=== PATIENT | female | born 1970 | race Caucasian/White ===

== ENCOUNTER 2020-10-27 12:33 | Outpatient (REF) | payer OTHER, SELFPAY ==
[2020-11-01 13:31] LABS: HPV mRNA E6/E7 rflx Not Detected (Not Detected)
== END 2020-10-27 12:34 | disposition home or self-care (01) ==
LOC: HO.LAB 12:33
PROVIDERS: Visit Provider Advanced Practice Midwife
DX: Z01.411 Encounter for gynecological examination (general) (routine) with abnormal findings (principal); Z11.51 Encounter for screening for human papillomavirus (HPV); N90.89 Other specified noninflammatory disorders of vulva and perineum
CPT/HCPCS: 36415; 87624; 88142

== ENCOUNTER → 2020-10-31 09:47 | Outpatient (BNVA) | payer OTHER, SELFPAY | PROVIDERS: Visit Provider Obstetrics & Gynecology ==

== ENCOUNTER 2020-11-02 08:16 | Outpatient (REF) | payer OTHER, SELFPAY | END 2020-11-02 08:17 | disposition home or self-care (01) | LOC: HO.LAB 08:16 | PROVIDERS: Visit Provider Obstetrics & Gynecology | DX: N90.89 Other specified noninflammatory disorders of vulva and perineum (principal); G89.29 Other chronic pain; M54.9 Dorsalgia, unspecified; K58.1 Irritable bowel syndrome with constipation; E78.00 Pure hypercholesterolemia, unspecified; E66.9 Obesity, unspecified; J30.2 Other seasonal allergic rhinitis; Z88.7 Allergy status to serum and vaccine; Z91.040 Latex allergy status; Z78.0 Asymptomatic menopausal state | CPT/HCPCS: 56605; 56606; 88305; 88312; 99212 ==

== ENCOUNTER → 2020-11-16 10:22 | Outpatient (BNVA) | payer OTHER, SELFPAY | PROVIDERS: Visit Provider Obstetrics & Gynecology ==

== ENCOUNTER → 2020-11-28 12:38 | Outpatient (BNVA) | payer OTHER, SELFPAY | PROVIDERS: Visit Provider Surgery | DX: Z01.818 Encounter for other preprocedural examination (principal); E66.01 Morbid (severe) obesity due to excess calories; Z68.42 Body mass index [BMI] 45.0-49.9, adult; R06.02 Shortness of breath | CPT/HCPCS: 99202 ==

== ENCOUNTER 2020-12-08 06:36 | Outpatient (REF) | payer OTHER, SELFPAY ==
--- NOTE | ~2020-12-08 | XR_ITS ---
EXAMINATION: XR CHEST CLINICAL INFORMATION: Shortness of breath COMPARISON: None TECHNIQUE: 2 views of the chest were obtained. FINDINGS: No significant abnormality is noted involving the heart, lungs, mediastinum, bony thorax or soft tissues. There is moderate spondylosis dorsal spine. XR/XR chest 2V IMPRESSION: Unremarkable chest examination.
--- NOTE | 2020-12-08 07:04 | ECG_ITS ---
Test Reason : SOB Blood Pressure : / mmHG Vent. Rate : 085 BPM Atrial Rate : 085 BPM P-R Int : 138 ms QRS Dur : 078 ms QT Int : 372 ms P-R-T Axes : 014 009 006 degrees QTc Int : 442 ms Normal sinus rhythm Normal ECG No previous ECGs available Referred By: Letitia Deleon Electronically Signed By:River Ngo
[2020-12-08 08:17] LABS: MANUAL DIFF FLAG NO
[2020-12-08 08:35] LABS: Basophils Absolute Auto 0.1 X10*3/uL (0.0-0.2); Basophils Percent Auto 1.2 % (0-2); Eosinophils Absolute Auto 0.3 X10*3/uL (0.0-0.4); Hematocrit 40.3 % (37-47); Hemoglobin 13.2 g/dl (12.0-16.0); Imm Gran Abs Auto 0.01 X10*3/uL (0.00-0.03); Imm Gran Pct Auto 0.1 % (0.0-0.4); Lymphocytes Absolute Auto 3.3 X10*3/uL (1.2-4.9); Lymphocytes Percent Auto 43.6 % (20-40); Mean Corpuscular HGB Conc 32.8 g/dl (31.0-35.0); Mean Corpuscular Hemoglobin 30.4 pg (27.0-33.0); Mean Corpuscular Volume 92.9 fL (80-98); Mean Platelet Volume 10.4 fL (9.4-12.3); Monocytes Absolute Auto 0.6 X10*3/uL (0.1-1.2); Monocytes Percent Auto 8.6 % (2-11); Neutrophils Absolute Auto 3.2 X10*3/uL (2.0-8.3); Neutrophils Percent Auto 42.5 % (45-73); Platelet Count 248 X10*3/uL (160-400); Red Blood Count 4.34 X10*6/uL (4.20-5.50); Red Cell Distribution Width 13.1 % (11.0-16.0); White Blood Count 7.5 X10*3/uL (4.8-10.8)
[2020-12-08 08:51] LABS: Alanine Aminotransferase 27 U/L (0-31); Albumin Level 4.1 g/dL (3.5-5.0); Alkaline Phosphatase 71 U/L (39-117); Anion Gap 14 (12-20); Aspartate Amino Transferase 24 U/L (5-31); Bilirubin Total 1.2 mg/dL (0.0-1.0); Blood Urea Nitrogen 14 mg/dL (9-16); Calcium 8.8 mg/dL (8.4-10.2); Carbon Dioxide 29 mmol/L (22-29); Chloride 102 mmol/L (96-108); Cholesterol 259 mg/dL; Estimated Glomerular Filt Rate > 60; Glucose Fasting 110 mg/dL (60-99); HDL Cholesterol 80 mg/dL; Iron 118 mcg/dL (30-160); LDL Cholesterol Calculated 153 mg/dl; Percent Iron Saturation 32 % (15-50); Potassium 4.2 mmol/L (3.3-5.1); Sodium 141 mmol/L (135-145); Total Iron Binding Capacity 370 mcg/dL (228-428); Total Protein 6.8 g/dL (6.5-8.0); Triglycerides 132 mg/dL; Unsaturated Iron Binding 252 ug/dL
[2020-12-08 10:01] LABS: Estimated Average Glucose 111 mg/dL; Hemoglobin A1c % 5.5 %; Thyroid Stimulating Hormone 3.37 uIU/mL (0.32-4.0); Vitamin B12 242 pg/mL (200-900); Vitamin D 25-OH Total 6.6 ng/mL (>30)
[2020-12-09 13:51] LABS: H Pylori Breath Test NOT DETECTED (NOT DETECTED)
[2020-12-09 18:21] LABS: Calcium (PTHI) 8.9 mg/dL (8.6-10.4); PTHI 163 pg/mL (14-64)
[2020-12-12 00:57] LABS: Zinc 78 mcg/dL (60-130)
[2020-12-12 06:51] LABS: Vitamin B1 9 nmol/L (8-30)
[2020-12-14 11:47] LABS: Vitamin A 63 mcg/dL (38-98)
== END 2020-12-08 06:37 | disposition home or self-care (01) ==
LOC: HO.LAB 06:36
PROVIDERS: Visit Provider Surgery
DX: Z01.818 Encounter for other preprocedural examination (principal); R06.02 Shortness of breath; K91.2 Postsurgical malabsorption, not elsewhere classified; Z90.3 Acquired absence of stomach [part of]
CPT/HCPCS: 36415; 71046; 80053; 80061; 82306; 82607; 83013; 83036; 83540; 83970; 84425; 84443; 84590; 84630; 85025; 86140; 93005; 99211

== ENCOUNTER → 2020-12-27 08:08 | Outpatient (BNVA) | payer OTHER, SELFPAY | PROVIDERS: Visit Provider Obstetrics & Gynecology | DX: N90.89 Other specified noninflammatory disorders of vulva and perineum (principal) | CPT/HCPCS: 99212 ==

== ENCOUNTER → 2020-12-29 13:14 | Outpatient (BNVA) | payer OTHER, SELFPAY | PROVIDERS: PCP Internal Medicine; Visit Provider Dietitian, Registered | DX: E66.01 Morbid (severe) obesity due to excess calories (principal); Z68.42 Body mass index [BMI] 45.0-49.9, adult | CPT/HCPCS: 97802 ==

== ENCOUNTER 2020-12-30 06:36 | Day surgery (SDC) | payer OTHER, SELFPAY ==
[2020-12-23 12:56] VITALS: BMI 49.2
[2020-12-30 06:53] VITALS: BP 111/69; PULSE 87; RESP 20; TEMP 36.2; O2SAT 97
--- NOTE | 2020-12-30 07:24 | P.CONAN_ITS ---
[facility] Active Problems Active Problems: All Active Problems (Updated 12/27/20 @ 08:57 by Filemon Huizar MD) Well woman exam with routine gynecological exam (Acute) Vulvar lesion (Acute) Preoperative examination (Acute) Shortness of breath (Acute) Morbid obesity due to excess calories (Acute) BMI 45.0-49.9, adult (Acute) Vitamin D deficiency (Acute) Bipolar 1 disorder, depressed, severe (Acute) Hyperparathyroidism (Acute) B12 deficiency (Acute) Dyslipidemia (Acute) Impaired glucose tolerance (Acute) Past Medical History Medical History (Updated 12/30/20 @ 07:26 by Leona Palm) Allergic rhinitis Arthritis B12 deficiency Chronic back pain Constipation Dyslipidemia History of Guillain-[place] syndrome Hyperparathyroidism Impaired glucose tolerance Manic depression Obesity Serum cholesterol elevated Unsteady gait when walking Family History Family History Father Hyperlipidemia Diabetes CVD (cardiovascular disease) Mother Diabetes Bipolar 1 disorder Depression Sister In good health Surgical History Surgical History History of appendectomy History of carpal tunnel release Hx of colonoscopy Social History Social History Are you a primary memory care director to a significant other at home: No Do you presently have visiting nurse or other home services: No Alcohol intake: current Alcohol intake frequency: a few times a week Alcohol type: wine and hard liquor Smoking Status: Never smoker Use of substances other than those prescribed or required for medical reasons: No Have you been hit, kicked, punched, or otherwise hurt by someone within the past year? If so, by whom?: No Advance Directives: No Advance Directives Information Provided: No Advance Directives on File: No Recently lost weight without trying: No Sexual orientation: Straight/Heterosexual Gender identity: female Meds Allergies Allergy/AdvReac Type Severity Reaction Status Date / Time latex [LATEX] Allergy Intermediate HIVES Verified 12/27/20 08:26 Influenza Virus Vaccines Allergy Unknown Guillian Verified 12/27/20 08:26 [place] Syndrome Seasonal allergies Allergy Mild Sneezing Uncoded 12/23/20 12:54 Active Medications: Current Medications Generic Name Dose Route Start Last Admin Trade Name Freq PRN Reason Stop Dose Admin Lactated Ringer's 1,000 mls @ 50 mls/hr 04/22/21 07:45 Lr IV .Q20H MOUNIKA Lactated Ringer's 1,000 mls @ 50 mls/hr 12/29/20 07:45 Lr IV .Q20H [facility] Home Medications Medication Instructions Recorded Confirmed Last Taken Type acetaminophen 650 mg 650 mg PO DAILY tab 11/28/20 12/27/20 Unknown History tablet,extended release diphenhydramine 25 1 tab PO BEDTIME PRN 11/28/20 12/27/20 Unknown History mg-acetaminophen 500 mg tablet cyanocobalamin (vitamin B-12) 1,000 mcg PO DAILY 12/22/20 12/27/20 Unknown History 1,000 mcg tablet Exam Exam Date and Time: December 30, 2020 0724 Height,Weight and Vital Signs: Height 5 ft 3 in Weight 126.099 kg Last Vital Signs Temp 97.1 F 12/30/20 06:53 Pulse 87 12/30/20 06:53 Resp 20 12/30/20 06:53 BP 111/69 12/30/20 06:53 Pulse Ox 97 12/30/20 06:53 Airway Mallampati Class: II TM Dist: >3cm Neck ROM: Full Assessment and Plan Assessment Anesthesia Assessment: Anesthesia Plan Discussed and Chart Reviewed Final Anesthetic Review NPO: Yes ASA Class: III Final Preanesthetic Review: No Changes in Pt Med Stat, Meds/Allgs Chart Reviewed, Consent Obtained/Reviewed and Anes Risks/Benef Reviewed Patient Risk: Intermediate Procedure Risk: Low Assessment/Block/Sedation in SS: Assess/Block/Sedation-SS Anesthetic Plan Anesthetic Plan: MAC: Disposition: Standard PACU
[2020-12-30] MEDS: Lactated Ringers 1,000 ML 50 ML IV (07:33)
--- NOTE | 2020-12-30 07:33 | P.HPSUR_ITS ---
Pre-Procedural Eval Section A The patient is an INPATIENT: No Changes since office visit: No Cold of Flu in the past 2 weeks, No New Medical Problems, No Changes in Medication and No Patient answered all questions The History & Physical has been completed within 30 days and I have reviewed it.: Yes Section B Chief Complaint: vulvar lesion Allergies: Allergies Allergy/AdvReac Type Severity Reaction Status Date / Time latex [LATEX] Allergy Intermediate HIVES Verified 12/27/20 08:26 Influenza Virus Vaccines Allergy Unknown Guillian Verified 12/27/20 08:26 [place] Syndrome Seasonal allergies Allergy Mild Sneezing Uncoded 12/23/20 12:54 Plan Diagnosis/Plan: Unchanged I have reviewed the history and physical and performed a pertinent physical examination on my patient. No changes have occurred unless specified.
--- NOTE | 2020-12-30 08:46 | PM.OP ---
Brief Operative Note Date of Service: 12/30/20 Pre-op diagnosis: Right labial lesion and Mons pubis lesion Post-op diagnosis: same Procedure: Excision of right labial lesion and Mons pubis lesion Surgeon: Filemon Huizar MD Anesthesia: MAC Estimated blood loss (mL): 0 Pathology: other (Right labial lesion and Mons pubis lesion) Condition: stable Disposition: PACU
--- NOTE | 2020-12-30 08:47 | W.PM.OPN ---
Operative Note Operative Note Date of Service: 12/30/20 Narrative: Preop diagnosis: Right labial lesion and Mons pubis lesion Operation: Excision of right labial lesion and Mons pubis lesion Postop diagnosis: the same Estimated blood loss: Minimal Pathology: Right labial lesion and months pubis lesion Anesthesia: Mac Clerical And Office Support Workers: None Procedure: The patient was put in the dorsal lithotomy position, was given anesthesia, prepped and draped in usual sterile fashion. 10 cc of Marcaine 0.25% was used to inject post lesions. Using a pickup and 11. Blade the right labial lesion was excised and using Metzenbaum scissors the skin with the lesion was dissected off the subcutaneous layer. Using 3.0 Vicryl suture was used to reapproximate the subQ layer, then using 4-0 Vicryl the skin was reapproximated in a subcuticular fashion. Hemostasis was assured. Then, attention was turned to the Mons pubis lesion, using a pickup and 11. Blade the lesion was cut and using Metzenbaum scissors scissors the skin layer with lesion was dissected off the subcuticular layer. 3.0 Vicryl suture was used to reapproximate the subQ layer, then using 4-0 Vicryl the skin was reapproximated in a subcuticular fashion. Hemostasis was assured and the patient tolerated the procedure and was transferred to the PACU in a stable condition
[2020-12-30 08:50] VITALS: BP 111/74; PULSE 83; RESP 14; TEMP 36.4; O2SAT 99
[2020-12-30] MEDS: Acetaminophen 325 MG TABLET 650 MG PO (09:01)
[2020-12-30 09:05] VITALS: BP 147/85; PULSE 77; RESP 16; O2SAT 97
== END 2020-12-30 10:17 | disposition home or self-care (01) ==
LOC: HO.SSS 06:37
PROVIDERS: Visit Provider Obstetrics & Gynecology
PROC: (CPT 11423; principal; 2020-12-30 08:20)
DX: N84.3 Polyp of vulva (principal); L82.1 Other seborrheic keratosis; E66.01 Morbid (severe) obesity due to excess calories; Z68.42 Body mass index [BMI] 45.0-49.9, adult; E55.9 Vitamin D deficiency, unspecified; F31.4 Bipolar disorder, current episode depressed, severe, without psychotic features; R73.02 Impaired glucose tolerance (oral); Z79.899 Other long term (current) drug therapy; Z88.7 Allergy status to serum and vaccine; Z91.040 Latex allergy status
CPT/HCPCS: 11423; 11422; 88305; J1100; J2250; J2405; J3010

== ENCOUNTER → 2021-01-12 09:48 | Outpatient (BNVA) | payer OTHER, SELFPAY | PROVIDERS: PCP Internal Medicine; Referring Provider Internal Medicine; Visit Provider Surgery | DX: N90.89 Other specified noninflammatory disorders of vulva and perineum (principal); E66.01 Morbid (severe) obesity due to excess calories; Z68.42 Body mass index [BMI] 45.0-49.9, adult | CPT/HCPCS: 99212 ==

== ENCOUNTER → 2021-01-26 08:09 | Outpatient (BNVA) | payer OTHER, SELFPAY | PROVIDERS: PCP Internal Medicine; Visit Provider Dietitian, Registered | DX: E66.01 Morbid (severe) obesity due to excess calories (principal); Z68.42 Body mass index [BMI] 45.0-49.9, adult | CPT/HCPCS: 97803 ==

== ENCOUNTER 2021-05-12 10:10 | Outpatient (REF) | payer OTHER, SELFPAY | END 2021-05-12 10:11 | disposition home or self-care (01) | LOC: HO.LAB 10:10 | PROVIDERS: PCP Internal Medicine; Visit Provider Internal Medicine | DX: Z20.822 Contact with and (suspected) exposure to COVID-19 (principal) | CPT/HCPCS: C9803; U0003; U0005 ==

== ENCOUNTER 2023-08-24 21:56 | Emergency (ER) | payer MEDICAID, SELFPAY ==
[2023-08-24 22:03] VITALS: BP 136/94; PULSE 102; O2SAT 99
[2023-08-24 22:12] VITALS: BP 119/63; PULSE 86; RESP 16; TEMP 37.6; O2SAT 96; BMI 44.6
[2023-08-24 22:19] VITALS: BP 119/63; PULSE 86; RESP 16; TEMP 37.6; O2SAT 96
--- NOTE | 2023-08-24 22:20 | PC.NURSE ---
Pt ca&ox4, no signs of distress. Pt reports 10/10 chronic body pain. Vitals stable Pt reports she drank too much mother called police and she slid off the couch and landed on her bottom. Pt denies head strike and loc. Plan of care ongoing.
[2023-08-24 22:41] LABS: Basophils Absolute Auto 0.1 X10*3/uL (0.0-0.2); Eosinophils Absolute Auto 0.2 X10*3/uL (0.0-0.4); Eosinophils Percent Auto 1.8 % (0-4); Hematocrit 40.6 % (37.0-47.0); Hemoglobin 13.5 g/dl (12.0-16.0); Imm Gran Abs Auto 0.04 X10*3/uL (0.00-0.03); Imm Gran Pct Auto 0.4 % (0.0-0.4); Lymphocytes Absolute Auto 2.9 X10*3/uL (1.2-4.9); Lymphocytes Percent Auto 26.4 % (20-40); MANUAL DIFF FLAG NO; Mean Corpuscular HGB Conc 33.3 g/dl (31.0-35.0); Mean Corpuscular Hemoglobin 30.5 pg (27.0-33.0); Mean Corpuscular Volume 91.9 fL (80.0-98.0); Mean Platelet Volume 9.5 fL (9.4-12.3); Monocytes Absolute Auto 0.6 X10*3/uL (0.1-1.2); Monocytes Percent Auto 5.5 % (2-11); Neutrophils Absolute Auto 7.2 x10*3/uL (2.0-8.3); Neutrophils Percent Auto 64.9 % (45-73); Platelet Count 231 X10*3/uL (160-400); Red Blood Count 4.42 X10*6/uL (4.20-5.50); Red Cell Distribution Width 13.6 % (11.0-16.0); White Blood Count 11.1 X10*3/uL (4.8-10.8)
[2023-08-24 22:43] LABS: Appearance Urine Cloudy; Color Urine Yellow; Glucose Urine UA Negative (Negative); Leukocyte Esterase Urine Negative (Negative); Nitrite Urine Positive (Negative); PH 5.5 (5.0-9.0); Specific Gravity - Urine 1.025 (1.005-1.025); UMIC TRIGGER UACC YES; Urine Blood Trace (Negative); Urine Ketones Negative (Negative); Urine Protein Trace mg/dL (Neg-Trace)
[2023-08-24 22:54] LABS: Bacteria Urine 3+ (None Seen); Hyaline Casts Urine 0-2 /LPF (0-2); RBC Urine 0-2 /HPF (0-2); UACC Culture Trigger YES; WBC Urine 0-5 /HPF (0-5)
--- NOTE | 2023-08-24 22:56 | ED_ITS ---
HPI - Alcohol General Chief Complaint: ETOH/Substance Use Stated Complaint: ETOH, FALL Time Seen by Provider: 08/24/23 22:51 Source: patient Mode of arrival: EMS Limitations: no limitations History of Present Illness HPI narrative: Patient comes to the emergency room via ambulance from home. Earlier today, patient states that she drank alcohol, slid off the couch and landed on her buttocks. Patient states that her mother panicked and called 911. Patient states she did not hit her head or loss consciousness. Patient has mild ache but nothing major. Patient has been able to walk at baseline. Patient states that she walks with a limp due to history of Guillain-[place]. Patient denies any new symptoms. Patient denies urinary/fecal incontinence or retention. Related Data Home Medications Medication Instructions Recorded Confirmed acetaminophen 650 mg 650 mg PO DAILY 11/28/20 05/11/21 tablet,extended release (Tylenol Arthritis Pain) diphenhydramine 25 1 tab PO BEDTIME PRN Sleep,pain 11/28/20 05/11/21 mg-acetaminophen 500 mg tablet (Tylenol PM Extra Strength) cyanocobalamin (vitamin B-12) 1,000 mcg PO DAILY 12/22/20 05/11/21 1,000 mcg tablet (Vitamin B-12) Previous Rx's Medication Instructions Recorded cholecalciferol (vitamin D3) 1,250 1,250 mcg PO QWEEK #4 caps 12/08/20 mcg (50,000 unit) capsule hydroxyzine HCl 25 mg tablet 25 mg PO BID PRN itching 7 days 05/11/21 #14 tabs prednisone 10 mg tablet 10 mg PO BID 4 days #8 tabs 05/11/21 Allergies Allergy/AdvReac Type Severity Reaction Status Date / Time Influenza Virus Vaccines Allergy Intermediate Guillian Verified 05/11/21 14:00 [place] Syndrome latex [LATEX] Allergy Intermediate HIVES Verified 05/11/21 14:00 Seasonal allergies Allergy Mild Sneezing Uncoded 05/11/21 14:00 Review of Systems 2 Review of Systems: Constitutional : No Weight loss, No Fever, No Chills, No Night Sweats, No Fatigue, No Malaise ENT/Mouth : No Hearing loss, No Ear Pain, No Nasal Congestion, No Sinus Pain, No Hoarseness, No sore throat, No Rhinorrhea, No Swallowing Difficulty Eyes: No Eye Pain, No Swelling, No Redness, No Foreign Body, No Discharge, No Vision Changes Cardiovascular : No Chest Pain, No SOB, No Dyspnea on Exertion, No Orthopnea, No Edema, No Palpitations Respiratory : No Cough, No Sputum, No Wheezing, No Smoke Exposure, No Dyspnea Gastrointestinal : No Nausea, No Vomiting, No Diarrhea, No Constipation, No abdominal Pain, No Hematochezia, No Melena Genitourinary : no irregular bleeding, No Dysuria, No Urinary Frequency, No Hematuria, No Urinary Incontinence, No Urgency, No Flank Pain, No Urinary Flow Changes, No Hesitancy Musculoskeletal : Complaining of chronic lower back pain due to Guillain-[place], No joint pain, No Myalgias, No Joint Swelling Skin : No Skin Lesions, No rash Neuro : No Weakness, No Numbness, No Paresthesias, No Loss of Consciousness, No Dizziness, No Headache Psych : No Anxiety/Panic, No Depression, No SI/HI/AH/VH, admits to drinking alcohol Heme/Lymph: No Bruising, No Bleeding,No Lymphadenopathy Endocrine : No Polyuria, No Polydipsia, No Temperature Intolerance PMFSH Past Medical History Medical History Unsteady gait when walking Hyperparathyroidism B12 deficiency Dyslipidemia Impaired glucose tolerance Manic depression Constipation Arthritis History of Guillain-[place] syndrome Serum cholesterol elevated Obesity Allergic rhinitis Chronic back pain Surgical History H/O local excision of skin lesion Hx of colonoscopy History of carpal tunnel release History of appendectomy Family History Family History (Updated 05/11/21 @ 13:46 by Grace Zhou) Father Hyperlipidemia Diabetes CVD (cardiovascular disease) Mother Diabetes Bipolar 1 disorder Depression Sister In good health Social History Social History Are you a primary child care nurse to a significant other at home: No Do you presently have visiting nurse or other home services: No Alcohol intake: current Alcohol intake frequency: 0-2 drinks per day Alcohol type: wine and hard liquor Comment: Unilateral Leg weakness- gait unsteady at times- No cane/walker yet Patient Tobacco Use Status: Never used Tobacco Smoked in Last 30 Days: No e-Cigarette/Vaping Use: Never Used Second Hand Smoke Exposure: No Use of substances other than those prescribed or required for medical reasons: No Advance Directives: No Advance Directives Information Provided: No service: No Current occupational status: employed Sexual orientation: Straight/Heterosexual Gender identity: Female Physical Exam ED Vital Signs: Vital Signs - 24 hr 08/24/23 22:12 08/24/23 22:19 Temperature 99.6 F 99.6 F Pulse Rate 86 86 Respiratory Rate 16 16 Blood Pressure 119/63 119/63 Pulse Oximetry 96 96 Oxygen Delivery Method Room Air Room Air BMI result Body Mass Index 44.6 Const Other: Appearance: Alert. Oriented X3. No acute distress. Clinically sober Eyes: Pupils equal, round and reactive to light. ENT: Pharynx normal. Neck: Normal inspection. Neck supple. No lymph nodes noted. No crepitus CVS: Normal heart rate and rhythm. Pulses normal. Normal S1 and S2 Respiratory: No respiratory distress. Breath sounds normal. No Wheezing. No rales Abdomen: Soft and nontender. No rigidity. No distention. Skin: Skin warm and dry. Normal skin color. Normal skin turgor. Extremities: No lower extremity edema. No Lacerations. No Rash Neuro: Oriented X 3. No motor deficit. No sensory deficit. Moving all extremities. No slurred speech. CN 2 through 12 grossly intact Psych: calm, cooperative, normal affect Medical Decision Making Medical Decision Making [facility] Narrative: -patient is awake, alert and oriented x3, no acute distress, clinically sober -patient walked to the bathroom, tech went with her but patient states her gait is at baseline -patient feels well otherwise. Patient declined any further workup -my interpretation of labs, white blood cell count 11.1, likely reactive leukocytosis, chemistry within normal limits. -patient states that she feels well and is requesting to be discharged. Patient's mother will be picking her up -patient declined care team/detox information. Patient feels well to go home. -patient's vitals within normal limits and patient is sober Differential Diagnosis Differential Diagnoses: The differential diagnosis associated with the presentation includes (Alcohol intoxication, fall) Lab Data [facility] Lab Attestation statement: I reviewed the patient's lab results. 08/24/23 22:32 08/24/23 22:33 Labs: Lab Results 12/16/23 12/16/23 12/16/23 Range/Units 22:32 22:33 22:34 WBC 11.1 H (4.8-10.8) X10*3/uL RBC 4.42 (4.20-5.50) X10*6/uL Hgb 13.5 (12.0-16.0) g/dl Hct 40.6 (37.0-47.0) % MCV 91.9 (80.0-98.0) fL MCH 30.5 (27.0-33.0) pg MCHC 33.3 (31.0-35.0) g/dl RDW 13.6 (11.0-16.0) % Plt Count 231 (160-400) X10*3/uL MPV 9.5 (9.4-12.3) fL Immature Gran % (Auto) 0.4 (0.0-0.4) % Neut % (Auto) 64.9 (45-73) % Lymph % (Auto) 26.4 (20-40) % Barren % (Auto) 5.5 (2-11) % Eos % (Auto) 1.8 (0-4) % Baso % (Auto) 1.0 (0-2) % Lymph # (Auto) 2.9 (1.2-4.9) X10*3/uL Barren # (Auto) 0.6 (0.1-1.2) X10*3/uL Eos # (Auto) 0.2 (0.0-0.4) X10*3/uL Baso # (Auto) 0.1 (0.0-0.2) X10*3/uL Abs Immat Gran (auto) 0.04 H (0.00-0.03) X10*3/uL Absolute Neuts (auto) 7.2 (2.0-8.3) x10*3/uL Absolute Nucleated RBC 0.000 (0.0-0.012) X10*3/uL Nucleated RBC % (auto) 0.0 (0.0-0.2) /100WBC Sodium 145 (135-145) mmol/L Potassium 4.0 (3.3-5.1) mmol/L Chloride 107 (96-108) mmol/L Carbon Dioxide 20 L (22-29) mmol/L Anion Gap 22 H (12-20) BUN 13 (9-16) mg/dL Creatinine 0.84 (0.5-1.4) mg/dL Estim Creat Clear Calc 96.6 Estimated GFR > 60 Random Glucose 87 (60-115) mg/dL Calcium 9.4 D (8.4-10.2) mg/dL Total Bilirubin 0.5 (0.0-1.0) mg/dL AST 26 (5-31) U/L ALT 24 (0-31) U/L Alkaline Phosphatase 78 (39-117) U/L Total Protein 7.8 (6.5-8.0) g/dL Albumin 4.3 (3.5-5.0) g/dL Urine Color Yellow Urine Appearance Cloudy Urine pH 5.5 (5.0-9.0) Ur Specific [place] 1.025 (1.005-1.025) Urine Protein Trace (Neg-Trace) mg/dL Urine Glucose (UA) Negative (Negative) mg/dL Urine Ketones Negative (Negative) mg/dL Urine Blood Trace (Negative) Urine Nitrite Positive H (Negative) Ur Leukocyte Esterase Negative (Negative) Urine RBC 0-2 (0-2) /HPF Urine WBC 0-5 (0-5) /HPF Ur Squamous Epith Cells 6-10 (0-2) /HPF Urine Bacteria 3+ (None Seen) Hyaline Casts 0-2 (0-2) /LPF Urine Opiates Screen Not Detected (Not Detect) Urine Fentanyl Screen Not Detected (Not Detect) Ur Barbiturates Screen Not Detected (Not Detect) Ur Phencyclidine Scrn Not Detected (Not Detect) Ur Amphetamines Screen Not Detected (Not Detect) U Benzodiazepines Scrn Not Detected (Not Detect) Urine Cocaine Screen Not Detected (Not Detect) U Marijuana (THC) Screen Not Detected (Not Detect) Discharge Plan Discharge Clinical Impression: Alcohol intoxication Patient Disposition: Home, Self-Care Additional Instructions: Please follow-up with your primary care physician tomorrow. If you have any worsening or new symptoms, please return to the emergency room or call 911 Prescriptions: No Action cholecalciferol (vitamin D3) 1,250 mcg (50,000 unit) capsule 1,250 mcg PO QWEEK Qty: 4 2RF cyanocobalamin (vitamin B-12) [Vitamin B-12] 1,000 mcg tablet 1,000 mcg PO DAILY prednisone 10 mg tablet 10 mg PO BID 4 Days Qty: 8 0RF hydroxyzine HCl 25 mg tablet 25 mg PO BID PRN (Reason: itching) 7 Days Qty: 14 0RF acetaminophen [Tylenol Arthritis Pain] 650 mg tablet extended release 650 mg PO DAILY diphenhydramine-acetaminophen [Tylenol PM Extra Strength] 25-500 mg tablet 1 tab PO BEDTIME PRN (Reason: Sleep,pain)
[2023-08-24 22:59] LABS: Amphetamine Screen Urine Not Detected (Not Detect); Barbiturates, Urine Not Detected (Not Detect); Benzodiazepines Screen Urine Not Detected (Not Detect); Cannabinoid Screen Urine Not Detected (Not Detect); Cocaine Screen Urine Not Detected (Not Detect); Fentanyl, urine Not Detected (Not Detect); Opiate Screen Urine Not Detected (Not Detect); Phencyclidine Screen Urine Not Detected (Not Detect)
[2023-08-24 23:03] LABS: Alanine Aminotransferase 24 U/L (0-31); Albumin Level 4.3 g/dL (3.5-5.0); Alkaline Phosphatase 78 U/L (39-117); Anion Gap 22 (12-20); Aspartate Amino Transferase 26 U/L (5-31); Bilirubin Total 0.5 mg/dL (0.0-1.0); Blood Urea Nitrogen 13 mg/dL (9-16); Calcium 9.4 mg/dL (8.4-10.2); Carbon Dioxide 20 mmol/L (22-29); Chloride 107 mmol/L (96-108); Creatinine Clr Calc Pharmacy 96.6; Estimated Glomerular Filt Rate > 60; Glucose Random 87 mg/dL (60-115); Sodium 145 mmol/L (135-145); Total Protein 7.8 g/dL (6.5-8.0)
--- NOTE | 2023-08-25 03:52 | PC.NURSE ---
Pt assisted to the restroom and back into bed. Plan of care ongoing.
--- NOTE | 2023-08-25 03:57 | PC.NURSE ---
Pt reports that she has no one to come and pick her up at this time. Pt unsteady on her feet. Pt reports she is lightheaded when she sits/stands up. This RN assisted pt to the restroom and back into the bed. Unable to d/c pt to the waiting room to await a ride d/t unsteady on feet. Plan of care ongoing.
--- NOTE | 2023-08-25 09:30 | PC.NURSE ---
prev shift attempted to d/c pt but ride not answering. attempted again to dc but ride not answering. spoke w charge. no shuttle available, no bus running. continuing to try to find a ride
[2023-08-25 09:36] VITALS: BP 156/85; PULSE 89; RESP 18; O2SAT 93
--- NOTE | 2023-08-25 09:44 | PC.NURSE ---
pt found a ride to answer her call - en route- pt receied papers, vss, no distress, calm, coop. steady gait. talking clearly w/o resp distress.
[2023-08-25 09:52] VITALS: TEMP 37.2
== END 2023-08-25 10:13 | disposition home or self-care (01) ==
PROVIDERS: Emergency Provider Emergency Medicine
DX: F10.920 Alcohol use, unspecified with intoxication, uncomplicated (principal); Y90.9 Presence of alcohol in blood, level not specified; E78.5 Hyperlipidemia, unspecified; G61.0 Guillain-Barre syndrome; E53.8 Deficiency of other specified B group vitamins; E66.01 Morbid (severe) obesity due to excess calories; Z68.41 Body mass index [BMI] 40.0-44.9, adult; Z79.899 Other long term (current) drug therapy
CPT/HCPCS: 36415; 80053; 80307; 81001; 85025; 87086; 99284; 99285